=== PATIENT | male | born 1960 | race Caucasian/White ===

== ENCOUNTER → 2016-08-12 | Outpatient (CLI) | payer OTHER ==
[~2016-08-12] MED LIST: AMLH/550 PO; ASPI81TA28 PO; CHOL100010 PO; CYCL10TA6 PO; MAGNESIUM PO; MISCCAP63 PO; MULTTAB58 PO; OMEG-13 PO; POTASSIUM PO
== END ==
LOC: C.PAIN 09:46
PROVIDERS: ATTEND Anesthesiology

== ENCOUNTER → 2016-08-27 | Outpatient (CLI) | payer OTHER | LOC: C.PAIN 09:06 | PROVIDERS: ATTEND Anesthesiology ==